=== PATIENT | male | born 1990 | race Caucasian/White ===

== ENCOUNTER 2017-11-28 05:25 | Emergency (ER) | payer OTHER ==
[~2017-11-28] VITALS: Ht 175.3 cm; Wt 97.5 kg
[~2017-11-28 05:25] MED LIST: PROAIR HFA8.5 GM INH
[2017-11-28] MEDS ORDERED: PROAIR HFA8.5 GM INH (05:30)
--- NOTE | 2017-11-28 05:31 | ED CARDIAC/CP/PALPITATIONS ---
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 MD MOSES TO BEDSIDE FOR EVAL ON ARRIVAL. Triage Nurses Notes Reviewed? yes Onset: Abrupt Duration: minute(s): Timing: recent history Location: central Radiation: no radiation Activities at Onset: while driving [place] [address] Prior Chest Pain/Card Workup: no prior chest pain Modifying Factors: Improves With: rest. Aspirin Today: no aspirin today Associated Symptoms: anxiety, numbness HPI: 27 yo male in prior good health was driving [place] [address] when he felt sudden chest tightness, feeling of panic, with numbness and tingling of both of his arms and legs. He notes no inciting cause, no dyspnea, diaphoresis, syncopal type symptoms, or radiation. He notes that he had milder symptoms previously, but "this was the worst." He is presently feeling better. (Aurelia SALINAS,Rome Flor) Reconcile Medications Albuterol Sulfate (Proair Hfa) 90 MCG HFA.AER.AD 2 PUF INH Q4-6 PRN PRN SOB ( Reported) Albuterol Sulfate (Proair Hfa) 90 MCG HFA.AER.AD 2 PUF INH Q4-6 PRN PRN ASTHMA (Reported) (Iesha SALINAS,Will Juarez) Past History Travel History Traveled to [place] past 21 day No Medical History Any Pertinent Medical History? 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 No (Aurelia SALINAS,Rome Flor) Review of Systems Review of Systems Constitutional: Reports: no symptoms. EENTM: Reports: no symptoms. Respiratory: Reports: no symptoms. Cardiovascular: Reports: no symptoms. GI: Reports: no symptoms. Genitourinary: Reports: no symptoms. Musculoskeletal: Reports: no symptoms. Skin: Reports: no symptoms. Neurological/Psychological: Reports: no symptoms. Hematologic/Endocrine: Reports: no symptoms. Immunologic/Allergic: Reports: no symptoms. All Other Systems: Reviewed and Negative (Aurelia SALINAS,Rome Flor) Physical Exam Physical Exam Cardiovascular: regular rate/rhythm Comments: Physical Exam Physical Exam General Appearance: well developed/nourished, no apparent distress Head: atraumatic, normal appearance Eyes: Bilateral: normal appearance. Ears, Nose, Throat: normal pharynx, normal ENT inspection Neck: normal inspection, supple, full range of motion Respiratory: normal breath sounds, chest non-tender, no respiratory distress, quiet respiration, lungs clear Cardiovascular: regular rate/rhythm Gastrointestinal: normal bowel sounds, soft, non-tender, no organomegaly Back: normal inspection, normal range of motion Extremities: normal inspection, normal capillary refill, normal range of motion, no edema Neurologic/Psych: no motor/sensory deficits, awake, alert, oriented x 3 Skin: intact, normal color, warm/dry Core Measures ACS in differential dx? No CVA/TIA Diagnosis No Sepsis Present: No Sepsis Focused Exam Completed? No (Aurelia SALINAS,Rome Flor) Progress Differential Diagnosis: chest pain, panic vs other. Plan of Care: Orders Procedure Date/time Status TROPONIN LEVEL 11/28 829 Complete EKG 11/28 829 Active TROPONIN LEVEL 11/29 527 Complete LIPASE 11/29 527 Complete HEPATIC FUNCTION PANEL 11/29 527 Complete D-DIMER 11/29 527 Complete CBC WITHOUT DIFFERENTIAL 11/29 527 Complete BASIC METABOLIC PANEL 11/29 527 Complete AMYLASE 11/29 527 Complete EKG 11/29 527 Active Laboratory Tests 11/28/17 0840: Troponin I < 0.01 11/28/17 0520: Anion Gap 8, Estimated GFR > 60, BUN/Creatinine Ratio 14.5, Glucose 123 H, Calcium 9.1, Total Bilirubin 0.3, Direct Bilirubin 0.1, AST 32, ALT 62, Alkaline Phosphatase 108, Troponin I < 0.01, Total Protein 6.9, Albumin 4.0, Amylase 73, Lipase 92, D-Dimer High Sensitivty < 200, CBC w Diff NO MAN DIFF REQ, RBC 5.34, MCV 88.6, MCH 30.4, MCHC 34.3, RDW 12.9, MPV 9.4, Gran % 54.8, Lymphocytes % 29.7, Monocytes % 7.8, Eosinophils % 7.1 H, Basophils % 0.6, Absolute Granulocytes 4.5, Absolute Lymphocytes 2.4, Absolute Monocytes 0.6, Absolute Eosinophils 0.6, Absolute Basophils 0 Diagnostic Imaging: Viewed by Me: Radiology Read. Discussed w/RAD: Radiology Read. Initial ED EKG: sinus, borderline inferior q's, likely normal variant, no acute changes. (Aurelia SALINAS,[place] Flor) CXR Impression: no acute abnormality Comments: 11/28/2017 7:51:54 AM patient signed out to me by Dr. 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 11/28/2017 10:24:12 AM I have updated Augustus and his family on test results. He offers no complaints currently. I have requested he follow up with a space technologist to more thoroughly investigate the underlying cause of his chest pain syndrome along with follow-up with his primary care physician. (Iesha SALINAS,Will Juarez) Departure Departure Disposition: HOME OR SELF CARE Condition: Stable Departure Forms: Customer Survey General Discharge Information Comments 11/28/17, 7am... pt to be signed out to dr. julian... trop/ekg #2... discussed at length with patient and family. (Aurelia SALINAS,Roem Flor) Departure Clinical Impression Primary Impression: Chest pain Qualifiers: Chest pain type: unspecified Qualified Code: R07.9 - Chest pain, unspecified Secondary Impressions: Panic attack Referrals: Gerardo SALINAS,Ac Zepeda Additional Instructions: Follow-up with Dr. Carrillo, space technologist, and your primary care physician this week for reevaluation of your chest pain. Rest, no exertion or heavy lifting. Return if any concerns or sudden worsening. If you do not currently have a primary care physician then please contact the [facility] at the following phone number: . Please note that there might be incidental findings in your evaluation that are unrelated to the current emergency department visit. Please notify your primary care doctor about this emergency department visit in order to obtain and review all of the testing performed so that these incidental findings can be monitored as needed. If you had an x-ray performed, please understand that some fractures or other findings may not be seen on the initial set of x-rays. If your symptoms persist you might need a repeat set of x-rays to check for such a fracture. If you had a laceration evaluated, please understand that foreign bodies such as glass or wood may not be visible to the naked eye or on plain x-rays. If the wound becomes red, swollen, increasingly more painful or if there is any drainage from the wound, please have it reevaluated by a physician for the possibility of a retained foreign body. If you're unable to follow up as outlined in the discharge instructions please return to the emergency department. Thank you for choosing the [facility] Emergency Department for your care. It was a pleasure to serve you today. Will Julian M.D. [facility] (Iesha SALINAS,Will Juarez) Critical Care Note Critical Care Note Critical Care Time: non-applicable (Aurelia SALINAS,Rome Flor)
[2017-11-28 05:40] LABS: ABSOLUTE BASOPHIL COUNT 0 /CUMM (0.0-0.2); ABSOLUTE EOSINOPHIL COUNT 0.6 /CUMM (0.0-0.7); ABSOLUTE GRANULOCYTE CT 4.5 /CUMM (1.4-6.5); ABSOLUTE LYMPH COUNT 2.4 /CUMM (1.2-3.4); ABSOLUTE MONOCYTE COUNT 0.6 /CUMM (0.10-0.60); BASOPHIL % 0.6 % (0.0-2.0); EOSINOPHIL % 7.1 % (0-5); GRANULOCYTE % 54.8 % (42.2-75.2); HEMATOCRIT 47.3 % (42-52); MEAN CORPUSCULAR HGB 30.4 PG (27.0-31.0); MEAN CORPUSCULAR HGB CONC 34.3 G/DL (33.0-37.0); MEAN CORPUSCULAR VOLUME 88.6 FL (80.0-94.0); MEAN PLATELET VOLUME 9.4 FL (7.4-10.4); PLATELET COUNT 207 /CUMM (130-400); RBC DISTRIBUTION WIDTH 12.9 % (11.5-14.5); RED BLOOD CELL CT 5.34 /CUMM (4.70-6.10); WHITE BLOOD CELL COUNT 8.2 /CUMM (4.8-10.8)
--- NOTE | 2017-11-28 10:03 | RADIOLOGY REPORT ---
EXAMINATION: XR PORTABLE CHEST CLINICAL INFORMATION: Chest pain COMPARISON: 01/19/2010 TECHNIQUE: Portable frontal view of the chest was obtained. FINDINGS: Lung volumes are symmetric. No focal consolidation is seen. No evidence of pneumothorax, pleural effusion, or pulmonary edema. The cardiomediastinal contour is unremarkable. No acute osseous findings are seen. IMPRESSION: No acute cardiopulmonary findings.
[2017-11-28 10:40] VITALS: BP 128/74
== END 2017-11-28 10:42 ==
LOC: ERH 05:25
PROVIDERS: Emergency Medicine
DX: R07.89 Other chest pain (principal); F41.0 Panic disorder [episodic paroxysmal anxiety]; F41.9 Anxiety disorder, unspecified; J45.909 Unspecified asthma, uncomplicated
CPT/HCPCS: 71045; 93005; 93010